=== PATIENT | female | born 1930 | race African-American/Black ===

== ENCOUNTER 2017-11-24 18:40 | Emergency (ER) | payer OTHER ==
[~2017-11-24] VITALS: Ht 170.2 cm; Wt 78.9 kg
[~2017-11-24 18:40] MED LIST: ASPIRIN EC81 M1 PO; ATORVASTATIN CA40 MG PO; CALCIUM 600 +1 EA11 PO; HYDROCODONE-AP1 EAC6 PO; XARELTO10 MG PO
[2017-11-24] MEDS ORDERED: ASPIR 8181 MG PO (19:00)
== END 2017-11-24 20:56 | disposition home or self-care (01) ==
LOC: ER 18:40
DX: S93.602A Unspecified sprain of left foot, initial encounter (principal); M25.462 Effusion, left knee; E78.00 Pure hypercholesterolemia, unspecified; Z90.710 Acquired absence of both cervix and uterus; Z88.0 Allergy status to penicillin; Z88.8 Allergy status to other drugs, medicaments and biological substances; Z88.6 Allergy status to analgesic agent; W01.0XXA Fall on same level from slipping, tripping and stumbling without subsequent striking against object, initial encounter; Y92.89 Other specified places as the place of occurrence of the external cause; Y93.89 Activity, other specified; Y99.8 Other external cause status